=== PATIENT | male | born 1955 | race Caucasian/White ===

== ENCOUNTER 2016-10-11 11:07 | Emergency (ER) | payer OTHER ==
--- NOTE | 2016-10-11 13:36 | DIAGNOSTIC IMAGING REPORT ---
PROCEDURE: CT ABD/PELVIS WITH CONTRAST INDICATION: Left lower quadrant pain. History of right kidney stones in right inguinal hernia. TECHNIQUE: 145 ml of Isovue 300 were injected intravenously and axial images were obtained of the entire abdomen and pelvis with sagittal and coronal reformations. COMPARISON: Comparison is made to CT abdomen and pelvis on 06/26/2013. FINDINGS: ABDOMEN: Gallbladder, liver, spleen, pancreas, and kidneys are normal. Moderate to marked calcified atheromatous changes aorta. Bowel pattern is normal. Appendix is not clearly identified, but no evidence of inflammatory process. Mild to moderate degenerative changes of the heart, lumbar and lower lumbar spine. PELVIS: There is a 2 cm focal area of edematous lipomatous change adjacent to the upper sigmoid colon. There are moderate to marked calcified atheromatous changes of the iliac vessels. The rest of the pelvic structures are normal with dystrophic calcifications in the central prostate. No evidence of diverticulitis. No evidence of free fluid. IMPRESSION: 1. There is a 2 cm lipomatous area in the upper sigmoid colon compatible with epiploic appendagitis (torsion of epiploic appendage). 2. Otherwise negative CT abdomen and pelvis. 3. Findings discussed with Dr. Can. All CT scans at this facility use dose modulation, iterative reconstruction, and/or weight-based dosing when appropriate to reduce radiation dose to as low as reasonably achievable.
--- NOTE | 2016-10-11 14:29 | ED CLINICAL REPORT ---
Clinical Report - Physicians/Mid Levels [facility] [address] [place] [address] 10/11/2016 11:08 Patient: JASMINA CHARLES Time Seen: 11:53. Arrived- By private vehicle. Historian- patient. HISTORY OF PRESENT ILLNESS Chief Complaint: ABDOMINAL PAIN. At its maximum, severity described as moderate. When seen in the E.D., severity described as moderate. Modifying factors- worsened by movement. Relieved by rest. It is described as "pain" and sharp. No radiation. It is described as located in the left lower quadrant. This started about 2 weeks ago and is still present. It was gradual in onset and has been waxing/waning. No nausea, vomiting or diarrhea. Similar symptoms previously: None. Recent medical care: The patient was seen recently in a clinic (5 days ago). Seen for similar symptoms and other problems. REVIEW OF SYSTEMS No constipation, black stools, hematemesis, difficulty with urination or pain with urination. No urinary frequency, bloody stools, fever, headache or sore throat. No chest pain, difficulty breathing, cough or skin rash. The patient has had joint pain, and back pain. All systems otherwise negative, except as recorded above. PAST HISTORY Primary physician: Dr Roman ([facility], [place], operated by [facility]) PROBLEMS: COPD / asthma Chronic pain syndrome. Chronic pain due to injury. Tendonitis. Chest Wall Pain. Fractured ribs in past. Pleurisy. UTI - Urinary Tract Infection. Sinus bradycardia. Hypokalemia. Nephrolithiasis. Anxiety Reaction. Hyperventilation. Dizziness. Near Syncope. Hypertension. SURGERIES: Hernia Repair. Sinus Surgery. Tonsillectomy. Medications: Gabapentin Oral 200 mg BID. Lantus Subcutaneous 10 units, every AM, pt is supposed to increase it as needed. Albuterol Sulfate HFA Inhalation, daily as needed. Paxil Oral 10 mg, daily. Allergies: Percocet. Xanax. SOCIAL HISTORY Former smoker, end date 2015. History of drug use: marijuana. No alcohol use. Is a local resident. ADDITIONAL NOTES The nursing notes have been reviewed. PHYSICAL EXAM Vital Signs: 10/11/2016 11:23 BP: 162/81. HR: 76. RR: 18. O2 saturation: 97%. Temp: 98.1 F. Pain level now: 8/10. Appearance: Alert. Oriented X3. Patient in mild distress. Eyes: Eyes normal inspection. No scleral icterus or pale conjunctivae. ENT: Pharynx normal. No pharyngeal erythema or tonsillar exudate. The mucous membranes are not dry. Neck: Normal inspection. Neck supple. CVS: Normal heart rate and rhythm. Heart sounds normal. Pulses normal. Respiratory: No respiratory distress. Breath sounds normal. Chest nontender. No rales, rhonchi or wheezes. Abdomen: Soft. Moderate tenderness in the left lower quadrant. No tenderness in the upper abdomen or epigastric area. No rebound tenderness, distention, mass present or guarding. Back: Normal inspection. Skin: Skin warm and dry. Normal skin color. No rash. Normal skin turgor. Extremities: Extremities exhibit normal ROM. No calf tenderness. No lower extremity edema. Neuro: Oriented X 3. No motor deficit. LABS, X-RAYS, AND EKG Abdominal CT: IMPRESSION: 1. There is a 2 cm lipomatous area in the upper sigmoid colon compatible with epiploic appendagitis (torsion of epiploic appendage). 2. Otherwise negative CT abdomen and pelvis. Study type: abdomen and pelvis. Abdominal CT performed with IV contrast. The study was independently viewed by me, interpreted by the radiologist and discussed with the radiologist. Laboratory Tests: UA-Culture if indicated: (LYNN: 10/11/2016 11:38) ( MsgRcvd 10/11/2016 12:08) Final results Test Result Flag Units (Reference) URINE COLOR YELLOW URINE APPEARANCE CLEAR URINE GLUCOSE 3+ (NEGATIVE) URINE BILIRUBIN NEGATIVE (NEGATIVE) URINE KETONE NEGATIVE (NEGATIVE) URINE SPECIFIC GRAVITY 1.020 (1.010-1.030) URINE PH 5.0 (5.0-8.0) URINE PROTEIN NEGATIVE (NEGATIVE) URINE UROBILINOGEN 0.2 EU/dL (0.2-1.0) URINE NITRITE NEGATIVE (NEGATIVE) URINE BLOOD NEGATIVE (NEGATIVE) URINE LEUK ESTERASE NEGATIVE (NEGATIVE) URINE RBC NONE SEEN rbc/hpf (0-1) URINE WBC RARE wbc/hpf (0-1) URINE EPITHELIAL CELLS 0-1 EPI/hpf (0-5) URINE BACTERIA NONE SEEN (NONE SEEN) URINE COMMENT CULT NOT INDICATED URINE CULTURES ARE SET-UP BASED ON THE FOLLOWING CRITERIA:POSITIVE NITRITEPOSITIVE LEUKOCYTE ESTERASEGREATER THAN 10 WHITE BLOOD CELLSMODERATE (2+) OR GREATER BACTERIA CBC w Diff: (LYNN: 10/11/2016 11:38) ( [facility] 10/11/2016 12:13) Final results Test Result Flag Units (Reference) WHITE BLOOD COUNT 10.1 K/uL (4.5-11.5) RED BLOOD COUNT 5.35 M/uL (4.50-5.90) HEMOGLOBIN 15.5 gm/dL (13.5-17.5) HEMATOCRIT 46.5 % (41.0-53.0) MEAN CELL VOLUME 87 fL (80-100) MEAN CORPUSCULAR HGB 29 pg (26-34) MEAN CORPUSCULAR HGB CONC 33 g/dL (31-37) RED CELL DISTRIBUTION WIDTH 13.8 % (11.6-14.8) PLATELET COUNT 203 K/uL (150-400) NEUTROPHIL % 70.1 % (50-75) LYMPH % 23.1 L % (25-40) MONO % 5.3 % (3-14) EOSINOPHIL % 1.3 % (0-4) BASOPHIL % 0.2 % (0-2) PT with INR: (LYNN: 10/11/2016 11:25) ( [facility] 10/11/2016 12:23) Final results Test Result Flag Units (Reference) INR 0.9 (0.8-1.2) Low Intensity Therapy: INR 1.5-2.0 PT range 18.5-23.1Mod.Intensity Therapy: INR 2.0-3.0 PT range 23.1-31.5High Intensity Therapy: INR 2.5-3.5 PT range 27.4-35.5High Intensity Therapy 2: INR 3.0-4.0 PT range 31.5-39.3 Urine Drug Screen: (LYNN: 10/11/2016 11:38) ( [facility] 10/11/2016 12:17) Final results Test Result Flag Units (Reference) AMPHETAMINE/METHAMPHETAMINE NEGATIVE (NEGATIVE) BARBITURATE NEGATIVE (NEGATIVE) BENZODIAZEPINE NEGATIVE (NEGATIVE) CANNABINOID POSITIVE H (NEGATIVE) COCAINE NEGATIVE (NEGATIVE) ECSTASY NEGATIVE (NEGATIVE) METHADONE NEGATIVE (NEGATIVE) OPIATE NEGATIVE (NEGATIVE) The urine drug screen is a qualitative screening test fordrug overdose and abuse. All screen results should beconsidered as presumptive.Drugs screened for are as follows:BenzodiazepinesCocaineAmphetamines/MetamphetaminesTHC (Tetrahydrocannabinol)OpiatesBarbituratesEcstasyMethadonePositive results are unconfirmed. For confirmation, notifythe lab for the specimen to be sent to the reference lab.All confirmations must be performed by a differentmethodology.The ingestion of natural herbal and plant productscontaining Ephedra/Ephedra metabolites can produce in urineone or more substances capable of cross reacting withamphetamine/methamphetamine immunoassays. These testsprovide a preliminary result only. A more specificalternative chemical method must be used to obtain aconfirmed analytical result. BNP: (LYNN: 10/11/2016 11:25) ( [facility] [place]11[place] 12:47) Final results Test Result Flag Units (Reference) B-TYPE NATRIURETIC PEPTIDE 18.4 pg/ml (5-100) CHEM 13 PANEL: (LYNN: 10/11/2016 11:25) ( [facility] [place]/11/2016 12:37) Final results Test Result Flag Units (Reference) GLUCOSE 353 H mg/dL (70-110) BUN 11 mg/dL (7-18) CREATININE 1.0 mg/dL (0.6-1.3) Estimated GFR >60 mL/min Estimated GFR- >60 mL/min Note: Persistent reduction over 3 months in eGFR<60 mL/min/1.73 m2 defines CKD. Patients with eGFR values>=60 mL/min/1.73 m2 may also have CKD if evidence ofpersistent proteinuria. Additional information may be foundat www.[email or web address].org. SODIUM 136 mmol/L (136-145) POTASSIUM 4.1 mmol/L (3.5-5.1) CHLORIDE 99 mmol/L (98-107) CARBON DIOXIDE 26 mmol/L (21-32) CALCIUM 8.8 mg/dL (8.5-10.1) TOTAL PROTEIN 7.7 g/dL (6.4-8.2) ALBUMIN 3.9 g/dL (3.3-5.0) BILIRUBIN, TOTAL 0.5 mg/dL (0.0-1.0) ALKALINE PHOSPHATASE 146 H U/L (46-116) AST (SGOT) 11 L U/L (15-37) ALT (SGPT) 27 U/L (12-78) MAGNESIUM 2.0 mg/dL (1.8-2.4) LIPASE 962 H U/L (73-393) AMYLASE 96 U/L (25-115) CPK 70 U/L (24-260) TROPONIN I <0.05 ng/mL (0.00-1.5) TROPONIN REFERENCE RANGE:<0.1 NEGATIVE0.1-1.5 INDETERMINANT>1.5 POSITIVE . Pulse Oximetry: 10/11/2016 11:23 O2 saturation: 97%. (FIO2 - room air). Interpretation: normal. PROGRESS AND PROCEDURES Course of Care: Normal Saline 1 liter IVPB given. Zofran 4 mg IVP given. Dilaudid 0.5 mg IVP given. Lipase is just less than 2.5x upper limitis of normal, but amylase is normal. No upper abdominal tenderness. Pt informed that he may have early pancreatitis, but unlikely. I have offered admission, but he declines now - states he will return or report to his pcp tomorrow for any new or worsening symptoms or concerns. He states he has taken vicodin in the past without problems. Patient/family counseled. Old ED records reviewed. Disposition: Discharged. Condition: stable and improved. CLINICAL IMPRESSION Acute left lower quadrant abdominal pain of unknown cause. Chronic, poorly controlled type 2 diabetes with hyperglycemia. No coma. Essential hypertension. Abnormal liver function test: alkaline phosphatase. Torsion of Epiploic Appendage. Elevated lipase with normal amylase - unclear etiology. INSTRUCTIONS Rest. Drink plenty of fluids. Avoid alcohol and NSAIDS. NSAIDS include aspirin, ibuprofen (Advil) and naproxen (Aleve). Avoid fatty, fried/greasy, lactose-containing (such as milk, cheese and ice cream), salty and spicy foods. No alcohol until released. Avoid alcohol and NSAIDS. Examples of NSAIDS include aspirin, ibuprofen (Advil) and naproxen (Aleve). Avoid fatty, fried/greasy, lactose-containing (such as milk, cheese and ice cream), salty and spicy foods. Warnings: Further evaluation is necessary in order to recheck abnormal lab, obtain test results, conduct further tests and assess the possibility of serious illness (you will need your LIPASE rechecked in the near future (at a minimum)). It is very important to follow up with a physician. SEDATIVE MEDICATION: You were given sedative medication during your visit. Do not drive or operate dangerous machinery. CONTROLLED SUBSTANCE WARNINGS. GENERAL WARNINGS: Return or contact your physician immediately if your condition worsens or changes unexpectedly, if not improving as expected, or if other problems arise. Your Current Medications: CONTINUE TAKING THE FOLLOWING MEDICATIONS: Albuterol Sulfate HFA Inhalation : daily, prn. Gabapentin Oral : 200 mg BID. Lantus Subcutaneous : 10 units every AM, pt is supposed to increase it as needed. Paxil Oral : 10 mg daily. Prescription Medications: Hydrocodone/APAP 5mg/325mg: take 1 to 2 orally every 6 hours as needed for pain. Dispense fifteen (15). No refills. Zofran (orally disintegrating tablets) 4 mg: take 1-2 orally every 8 hours as needed for nausea and vomiting. Dispense five (5). No refill. Substitution is permissible. Follow-up: Screening today revealed the patient's blood pressure to be in the hypertensive range. The patient should follow up with a primary care provider for blood pressure management. (Electronically signed by Jay Can DO 10/11/2016 22:59)
--- NOTE | 2016-10-11 14:30 | ED ORDER SUMMARY ---
..... Patient: JASMINA CHARLES OrderSheet [facility] VisitID: [id number] [place] [address] 61y, M Registration Date/Time: 10/11/2016 ORDER SHEET Weight: 95.7 kg (stated) Allergies: Percocet, Xanax GENERAL ORDERS: UA-Culture if indicated Urgent (11:43 10/11/2016 LSullivan R.N. per protocol) (11:44 TBergley) Amylase Urgent (11:57 10/11/2016 PHutchinson DO) (Ack 12:00 TBergley) (12:01 EHassan R.N.) Lipase Urgent (11:10/11/2016 PHutchinson DO) (Ack 12:00 TBergley) (12:01 EHassan R.N.) PT with INR Urgent (11:10/11/2016 PHutchinson DO) (Ack 12:00 TBergley) (12:01 EHassan R.N.) Cardiac Panel Stat (11:57 10/11/2016 PHutchinson DO) (Ack 12:00 TBergley) (12:01 EHassan R.N.) Urine Drug Screen Urgent (11:57 10/11/2016 PHutchinson DO) (Ack 12:00 TBergley) (12:01 EHassan R.N.) BNP Urgent (11:10/11/2016 PHutchinson DO) (Ack 12:00 TBergley) (12:01 EHassan R.N.) NPO (11:10/11/2016 PHutchinson DO) (Ack 12:00 TBergley) (12:01 EHassan R.N.) CT Abd/Pel w Cont (Yes) (N/A) (LLQ - ?hernia, ?Diverticulitis) Urgent (12:29 10/11/2016 PHutchinson DO) (Ack 12:31 TBergley) (13:05 Timo) MEDICATION ORDERS: IV FLUIDS: IV Saline Lock (11:35 10/11/2016 LSullivan R.N. per protocol) (11:36 LSullivan R.N.) IV NS : initial bolus 1000 mL (1000 mL/hr), then 500 mL/hr for X2 (NOW) (11:56 [facility] (12:07 Machellen R.N.) Zofran IV 4 mg (NOW) (11:57 10/11/2016 [facility] (12:07 Machellen R.N.) Dilaudid IV 0.5 mg (may repeat x 2 prn pain) (12:04 10/11/2016 [facility] (12:12 Machellen R.N.) ORDER SHEET NOTES: [Electronically signed by Jay Can DO (22:59 10/11/2016)] [Electronically signed by Ruth Coley R.N. (12:41 10/14/2016)] [Electronically locked/signed by Ruth Coley R.N. (12:41 10/14/2016)]
--- NOTE | 2016-10-11 14:30 | ED ORDER SUMMARY ---
..... Patient: JASMINA CHARLES OrderSheet [facility] VisitID: [id number] [place] [address] 61y, M Registration Date/Time: 10/11/2016 ORDER SHEET Weight: 95.7 kg (stated) Allergies: Percocet, Xanax GENERAL ORDERS: UA-Culture if indicated Urgent (11:43 10/11/2016 LSullivan R.N. per protocol) (11:44 TBergley) Amylase Urgent (11:57 10/11/2016 PHutchinson DO) (Ack 12:00 TBergley) (12:01 EHassan R.N.) Lipase Urgent (11:10/11/2016 PHutchinson DO) (Ack 12:00 TBergley) (12:01 EHassan R.N.) PT with INR Urgent (11:10/11/2016 PHutchinson DO) (Ack 12:00 TBergley) (12:01 EHassan R.N.) Cardiac Panel Stat (11:57 10/11/2016 PHutchinson DO) (Ack 12:00 TBergley) (12:01 EHassan R.N.) Urine Drug Screen Urgent (11:57 10/11/2016 PHutchinson DO) (Ack 12:00 TBergley) (12:01 EHassan R.N.) BNP Urgent (11:10/11/2016 PHutchinson DO) (Ack 12:00 TBergley) (12:01 EHassan R.N.) NPO (11:10/11/2016 PHutchinson DO) (Ack 12:00 TBergley) (12:01 EHassan R.N.) CT Abd/Pel w Cont (Yes) (N/A) (LLQ - ?hernia, ?Diverticulitis) Urgent (12:29 10/11/2016 PHutchinson DO) (Ack 12:31 TBergley) (13:05 Timo) MEDICATION ORDERS: IV FLUIDS: IV Saline Lock (11:35 10/11/2016 LSullivan R.N. per protocol) (11:36 LSullivan R.N.) IV NS : initial bolus 1000 mL (1000 mL/hr), then 500 mL/hr for X2 (NOW) (11:56 10/11/2016 [facility] (12:07 Machellen R.N.) Zofran IV 4 mg (NOW) (11:57 [facility]/11/2016 [facility] (12:07 Machellen R.N.) Dilaudid IV 0.5 mg (may repeat x 2 prn pain) (12:04 10/11/2016 [facility]) (12:12 Machellen R.N.) ORDER SHEET NOTES: [Electronically signed by Jay Can DO (22:59 10/11/2016)] [Electronically signed by Ruth Coley R.N. (12:41 10/14/2016)] [Electronically locked/signed by Ruth Coley R.N. (12:41 10/14/2016)]
--- NOTE | 2016-10-11 14:30 | ED NURSING NOTES ---
Clinical Report - Nurses [facility] [address] [place] [address] 10/11/2016 11:08 Patient: JASMINA CHARLES TRIAGE Triage time 11:23. Acuity: LEVEL 3. Chief Complaint: ABDOMINAL PAIN and (LLQ "dull, hot pain"). Alert. --11:33 Allison Morfin R.N. 11:23 10/11/16. BP: 162/81. HR: 76. RR: 18. O2 saturation: 97%. Temp: 98.1 F. Pain level now: 01/22. --11:33 Allison Morfin R.N. Weight: 95.7 kg stated. Height/Length: 68 inches Per Patient. BMI: 32.1. --11:30 Allison Morfin R.N. Medications Albuterol Sulfate HFA Inhalation, daily as needed. Paxil Oral 10 mg, daily. --11:27 Allison Morfin R.N. Lantus Subcutaneous 10 units, every AM, pt is supposed to increase it as needed. --11:28 Allison Morfin R.N. Gabapentin Oral 200 mg BID. --11:29 Allison Morfin R.N. Allergies Percocet. Xanax. --11:27 Allison Morfin R.N. History Arrived by private vehicle. Historian: patient. Accompanied by spouse. Primary physician (Jesus Roman). This is a recurrent problem. (last Thursday). Treatment PET SITTING: (last took insulin at bedtime last night). PAST MEDICAL HX: Diabetes mellitus (for 2 years, last BS 476). Immunizations: up-to-date. SOCIAL HX: Former smoker, end date 2015. History of drug use: marijuana. No alcohol use. NUTRITIONAL RISK ASSESSMENT: The nutritional risk assessment revealed no deficiencies. FUNCTIONAL ASSESSMENT: Functional assessment: no impairments noted. --11:33 Allison Morfin R.N. PROBLEMS: Chronic pain syndrome. Chronic pain due to injury. Tendonitis. Chest Wall Pain. Fractured ribs in past. Pleurisy. UTI - Urinary Tract Infection. Sinus bradycardia. Hypokalemia. Nephrolithiasis. Anxiety Reaction. Hyperventilation. Dizziness. Near Syncope. Hypertension. --11: Allison Morfin R.N. ADDITIONAL SURGERIES: Hernia Repair. Sinus Surgery. Tonsillectomy. --11:30 Allison Morfin R.N. Interventions ID and allergy band on patient. To room. --11:33 Allison Morfin R.N. PHYSICAL ASSESSMENT 11:10/11/16. GENERAL / NEURO / PSYCH: Alert. Oriented X 4. RESPIRATORY: Respirations not labored. --11:33 Allison Morfin R.N. NURSING PROGRESS NOTES 11:10/11/16. Patient identifiers checked. Call light placed in reach. Bed placed in lowest position. Patient ready for evaluation- chart flagged. --11:33 Allison Morfin R.N. 11:36 10/11/2016 Site #1 started via IV in the right wrist with an 20g angiocath, with aseptic technique and good blood return; one attempt. Blood drawn: rainbow set. Labeled in the presence of the patient and sent to the lab. Saline lock flushed with 10 mL saline. --11:36 Allison Morfin R.N. 11:38 10/11/16. Patient ID band checked for patient name and birthdate: patient confirmed. Clean catch urine collected with return of yellow-colored clear urine; sample sent to lab. Specimen labeled in the presence of the patient. --11:38 Allison Morfin R.N. ( BS 263 at 5:15 am this morning, pt states). --11:39 Allison Morfin R.N. 12:10/11/2016 Started bag #1 999 mL IV Fluids IV NS (Saline); at 999 mL/hr over 1 hour(s) via site #1 via IV pump. Allergies verified and confirmed 5 rights. IV patency established. IV site checked: no pain, redness, or swelling. IV flushed thoroughly pre- and post-medication administration. --12:07 Ruth Coley R.N. 12:07 10/11/2016 Zofran (Ondansetron HCl) IVP 4 mg given over 2 minute(s) via site #1. Allergies verified and confirmed 5 rights. IV patency established. IV site checked: no pain, redness, or swelling. IV flushed thoroughly pre- and post-medication administration. IVP given by RN. --12:07 Ruth Coley R.N. 12:12 10/11/2016 Dilaudid (HYDROmorphone HCl PF) IVP 0.5 mg given over 1 minute(s) via site #1. Allergies verified, confirmed 5 rights and sedative warning given to the patient and patient's family. IV patency established. IV site checked: no pain, redness, or swelling. IV flushed thoroughly pre- and post-medication administration. IVP given by RN. --12:12 Ruth Coley R.N. 12:00 10/11/16. BP: 126/92. HR: 71. RR: 15. O2 saturation: 98%. Temp: 98.3 F (oral). Pain level now: 10/22. --12:13 Ruth Coley R.N. Pulse oximeter and NIBP monitor placed on patient. Reassurance given. Reassessment after fluids administered. He is calm. Overall patient status is the same- he states feels the same. GI / : The patient reports nausea. The patient reports abdominal pain. Denies diarrhea or vomiting. SKIN: Skin color within normal limits. Two patient identifiers checked. Call light placed in reach. Side rails up x 1. --12:13 Ruth Coley R.NKira 13:00 10/11/16. BP: 137/80. HR: 68. RR: 14. O2 saturation: 100%. Pain level now: 11/22. --13:35 Ruth Coley R.N. Pulse oximeter and NIBP monitor placed on patient. Reassurance given. Overall patient status is the same- he states feels better. GI / : The patient reports abdominal pain. Denies nausea or diarrhea. Two patient identifiers checked. Call light placed in reach. --13:35 Ruth Coley R.N. 13:25 10/11/2016 Dilaudid IVP Response: no adverse reaction pain is improving. Symptoms are the same. The patient feels the same. --13:40 Ruth Coley R.N. 13:35 10/11/2016 IV Fluids IV NS via IV site #1 Rate Changed: bag #2 decreased to 500 mL/hr via IV pump. IV patency established. IV site checked: no pain, redness, or swelling. IV flushed thoroughly. --13:35 Ruth Coley R.N. 13:36 10/11/2016 IV Fluids IV NS Discontinued: bag #1 completed. Total amount infused: 1000 mL. IV patency established. IV site checked: no pain, redness, or swelling. IV flushed thoroughly. --13:36 Ruth Coley R.N. 13:40 10/11/2016 Dilaudid (HYDROmorphone HCl PF) IVP 0.5 mg given over 30 second(s) via site #1. Allergies verified, confirmed 5 rights and sedative warning given to the patient. IV patency established. IV site checked: no pain, redness, or swelling. IV flushed thoroughly pre- and post-medication administration. IVP given by RN. --13:40 Ruth Coley R.N. DISPOSITION / DISCHARGE 15:15 10/11/2016 Site #1 removed upon discharge. Catheter intact. Pressure dressing applied. --15:15 Sharmaine Pruett R.N. Departure time: 15:Oct 11 2016. Condition at departure: improved. No learning barriers present. Discharge instructions provided and reviewed with the patient. Reviewed warnings. Reviewed medication(s). Treatments reviewed. Reviewed referrals. Patient verbalized understanding. Written instructions provided in [place]. The patient was discharged home and accompanied by spouse. He left the Emergency Department ambulatory and via private vehicle. Spouse driving. --15:15 Sharmaine Pruett R.N. 15:14 10/11/16. BP: 119/71. HR: 76. RR: 18. O2 saturation: 96%. Temp: 98.6 F. Pain level now 5/10. --15:15 Sharmaine Pruett R.N. Locked/Released at 10/14/2016 12:41 by Ruth Coley R.N.
--- NOTE | 2016-10-14 12:41 | ED MAR SUMMARY ---
..... Medication Administration Record [facility] [address] [place] [address] Patient: JASMINA CHARLES Visit ID: [id number] 61y, M Weight: 95.7 kg Height/Length: 68 in BMI: 32.1 ALLERGIES: Percocet, Xanax Start 12:07 10/11/2016 Ruth Coley R.N., Stop 13:36 10/11/2016 Ruth Coley R.N. Medication Administered: IV NS (SALINE), Dose: IV Fluids over 1 hour(s), Rate: 999 mL/hr, Dispensed: 999 mL bag, Site: #1 right wrist. Medication Ordered: IV NS : initial bolus 1000 mL (1000 mL/hr), then 500 mL/hr for X2 (NOW). Given 12:07 10/11/2016 Ruth Coley R.N. Medication Administered: ZOFRAN [IVP] (ONDANSETRON HCL), Dose: 4 mg IVP over 2 minute(s), Site: #1 right wrist. Medication Ordered: Zofran IV 4 mg (NOW). Given 12:12 10/11/2016 Ruth Coley R.N. Medication Administered: DILAUDID [IVP] (HYDROMORPHONE HCL PF), Dose: 0.5 mg IVP over 1 minute(s), Site: #1 right wrist. Medication Ordered: Dilaudid IV 0.5 mg (may repeat x 2 prn pain). Given 13:40 10/11/2016 Ruth Coley R.N. Medication Administered: DILAUDID [IVP] (HYDROMORPHONE HCL PF), Dose: 0.5 mg IVP over 30 second(s), Site: #1 right wrist. Medication Ordered: Dilaudid IV 0.5 mg (may repeat x 2 prn pain).
--- NOTE | 2016-10-14 12:41 | ED MAR SUMMARY ---
..... Medication Administration Record [facility] [address] [place] [place] [address] Patient: JASMINA CHARLES Visit ID: [id number] 61y, M Weight: 95.7 kg Height/Length: 68 in BMI: 32.1 ALLERGIES: Percocet, Xanax Start 12:07 10/11/2016 Ruth Coley R.N., Stop 13:36 10/11/2016 Ruth Coley R.N. Medication Administered: IV NS (SALINE), Dose: IV Fluids over 1 hour(s), Rate: 999 mL/hr, Dispensed: 999 mL bag, Site: #1 right wrist. Medication Ordered: IV NS : initial bolus 1000 mL (1000 mL/hr), then 500 mL/hr for X2 (NOW). Given 12:07 10/11/2016 Ruth Coley R.N. Medication Administered: ZOFRAN [IVP] (ONDANSETRON HCL), Dose: 4 mg IVP over 2 minute(s), Site: #1 right wrist. Medication Ordered: Zofran IV 4 mg (NOW). Given 12:12 10/11/2016 Ruth Coley R.N. Medication Administered: DILAUDID [IVP] (HYDROMORPHONE HCL PF), Dose: 0.5 mg IVP over 1 minute(s), Site: #1 right wrist. Medication Ordered: Dilaudid IV 0.5 mg (may repeat x 2 prn pain). Given 13:40 10/11/2016 Ruth Coley R.N. Medication Administered: DILAUDID [IVP] (HYDROMORPHONE HCL PF), Dose: 0.5 mg IVP over 30 second(s), Site: #1 right wrist. Medication Ordered: Dilaudid IV 0.5 mg (may repeat x 2 prn pain).
--- NOTE | 2016-10-14 12:41 | ED MED RECONCILIATION SUMMARY ---
Patient: JASMINA CHARLES Medication Reconciliation Report [facility] VisitID: [id number] [address] [place] [address] 61y, M Registration Date/Time: 10/11/2016 Weight: 95.7 kg Height/Length: 68 in. BMI: 32.1 ALLERGIES: Percocet, Xanax The patient's Home Medications are listed below: CONTINUE TAKING THE FOLLOWING MEDICATIONS: Albuterol Sulfate HFA Inhalation, daily Gabapentin Oral 200 mg BID Lantus Subcutaneous 10 units, every AM, pt is supposed to increase it as needed Paxil Oral 10 mg, daily The source(s) of the original Home Medication information: Not obtained. The following Medications were given to the patient in the Emergency Department: IV NS IV Fluids bolus 0, then 999 mL/hr, administered: 10/11/2016 12:07:00 PM Zofran [IVP] IVP 4 mg, administered: 10/11/2016 12:07:00 PM Dilaudid [IVP] IVP 0.5 mg, administered: 10/11/2016 12:12:00 PM Dilaudid [IVP] IVP 0.5 mg, administered: 10/11/2016 1:40:00 PM The following Medications were prescribed to the patient: Hydrocodone/APAP 5mg/325mg: take 1 to 2 orally every 6 hours as needed for pain. Dispense fifteen (15). No refills. -- Jay Can DO Zofran (orally disintegrating tablets) 4 mg: take 1-2 orally every 8 hours as needed for nausea and vomiting. Dispense five (5). No refill. Substitution is permissible. -- Jay Can DO
--- NOTE | 2016-10-14 12:41 | ED DISCHARGE INSTRUCTIONS ---
Patient: JASMINA CHARLES General Instructions [facility] VisitID: [id number] [place] [address] 61y, M Registration Date/Time: 10/11/2016 Acute left lower quadrant abdominal pain of unknown cause. Chronic, poorly controlled type 2 diabetes with hyperglycemia. No coma. Essential hypertension. Abnormal liver function test: alkaline phosphatase. Torsion of Epiploic Appendage. Elevated lipase with normal amylase - unclear etiology. INSTRUCTIONS Rest. Drink plenty of fluids. Avoid alcohol and NSAIDS. NSAIDS include aspirin, ibuprofen (Advil) and naproxen (Aleve). Avoid fatty, fried/greasy, lactose-containing (such as milk, cheese and ice cream), salty and spicy foods. No alcohol until released. Avoid alcohol and NSAIDS. Examples of NSAIDS include aspirin, ibuprofen (Advil) and naproxen (Aleve). Avoid fatty, fried/greasy, lactose-containing (such as milk, cheese and ice cream), salty and spicy foods. Warnings: Further evaluation is necessary in order to recheck abnormal lab, obtain test results, conduct further tests and assess the possibility of serious illness (you will need your LIPASE rechecked in the near future (at a minimum)). It is very important to follow up with a physician. SEDATIVE MEDICATION: You were given sedative medication during your visit. Do not drive or operate dangerous machinery. CONTROLLED SUBSTANCE WARNINGS. GENERAL WARNINGS: Return or contact your physician immediately if your condition worsens or changes unexpectedly, if not improving as expected, or if other problems arise. Your Current Medications: CONTINUE TAKING THE FOLLOWING MEDICATIONS: Albuterol Sulfate HFA Inhalation : daily, prn. Gabapentin Oral : 200 mg BID. Lantus Subcutaneous : 10 units every AM, pt is supposed to increase it as needed. Paxil Oral : 10 mg daily. Prescription Medications: Hydrocodone/APAP 5mg/325mg: take 1 to 2 orally every 6 hours as needed for pain. Dispense fifteen (15). No refills. Zofran (orally disintegrating tablets) 4 mg: take 1-2 orally every 8 hours as needed for nausea and vomiting. Dispense five (5). No refill. Substitution is permissible. Follow-up: Screening today revealed the patient's blood pressure to be in the hypertensive range. The patient should follow up with a primary care provider for blood pressure management. ADDITIONAL INFORMATION Abdominal Pain, Unknown Cause (Female) The exact cause of your abdominal (stomach) pain is not certain. This does not mean that this is something to worry about, or the right tests were not done. Everyone likes to know the exact cause of the problem, but sometimes with abdominal pain, there is no clear-cut cause, and this could be a good thing. The good news is that your symptoms can be treated, and you will feel better. Your condition does not seem serious now; however, sometimes the signs of a serious problem may take more time to appear. For this reason,it is important for you to watch for any new symptoms, problems,or worsening of your condition. Over the next few days, the abdominal pain may come and go, or be continuous. Other common symptoms can include nausea and vomiting. Sometimes it can be difficult to tell if you feel nauseous, you may just feel bad and not associate that feeling with nausea. Constipation, diarrhea, and a fever may go along with the pain. The pain may continue even if treated correctly over the following days. Depending on how things go, sometimes the cause can become clear and may require further or different treatment. Additional evaluations, medications, or tests may be needed. Home care Your health care provider may prescribe medications for pain, symptoms, or an infection. Follow the health care provider's instructions for taking these medications. General care Rest until your next exam. No strenuous activities. Try to find positions that ease discomfort. A small pillow placed on the abdomen may help relieve pain. Something warm on your abdomen (such as a heating pad) may help, but be careful not to burn yourself. Diet Do not force yourself to eat, especially if having cramps, vomiting, or diarrhea. Water is important so you do not get dehydrated. Soup may also be good. Sports drinks may also help, especially if they are not too acidic. Make sure you don't drink sugary drinks as this can make things worse. Take liquids in small amounts. Do not guzzle them. Caffeine sometimes makes the pain and cramping worse. Avoid dairy products if you have vomiting or diarrhea. Don't eat large amounts at a time. Wait a few minutes between bites. Eat a diet low in fiber (called a low-residue diet). Foods allowed include refined breads, white rice, fruit and vegetable juices without pulp, tender meats. These foods will pass more easily through the intestine. Avoid whole-grain foods, whole fruits and vegetables, meats, seeds and nuts, fried or fatty foods, dairy, alcohol and spicy foods until your symptoms go away. Follow-up care Follow up with your health care provider as instructed, or if your pain does not begin to improve in the next 24 hours. When to seek medical care Seek prompt medical care if any of the following occur: Pain gets worse or moves to the right lower abdomen New or worsening vomiting or diarrhea Swelling of the abdomen Unable to pass stool for more than three days Fever of 100.4F (38C) or higher, or as directed by your healthcare provider. Blood in vomit or bowel movements (dark red or black color) Jaundice (yellow color of eyes and skin) Weakness, dizziness Chest, arm, back, neck or jaw pain Unexpected vaginal bleeding or missed period Call 911 Call emergency services if any of the following occur: Trouble breathing Confusion Fainting or loss of consciousness Rapid heart rate Seizure Diabetes with High Blood Sugar You have been treated for high blood sugar (hyperglycemia). This may be becauseof an infection or other illness;eating too many sweets or starches ; not taking enough insulin. Home care High blood sugar may cause symptoms that you can learn to recognize, such as these: If you feel like your blood sugar may be too high, measure it using a blood or urine test. If it is above your usual range, use the "sliding scale"rRegular insulin dose your doctor gave you to correct this. If no "sliding scale" orders were given, contact your doctor for further advice. If your blood sugar is over 300, and you can't reach your doctor, go to the hospital emergency room. Monitor and write down your blood sugars - and insulin dose, if you take insulin - atleast twice a day. Do this before breakfast and before dinner. Do this for the next 3 to 5 days. Follow-up care Follow up with your health care provderduring the next week to review your blood sugar records. You will find out if you need to adjust your dose of insulin or other medicine for blood sugar. When to seek medical care Get prompt medical attention if either of these occur: High blood sugar.Symptoms are frequent urination, feeling dizzy, thirst, headache, nausea or vomiting, abdominal pain, and drowsiness or loss of consciousness. Low blood sugar. Symptoms are fatigue, headache, shakes, excess sweating, hunger, anxiety, reduced vision, drowsiness, weakness, confusion or loss of consciousness, and seizure. High Blood Pressure --Established High Blood Pressure (Hypertension) is a chronic disease. The cause is unknown in most cases. It can usually be controlled with lifestyle changes and/or medicines. Symptoms of high blood pressure may include headache, dizziness, visual changes, chest pain and shortness of breath. Sometimes it causes no symptoms at all. However, even if there are no symptoms, untreated high blood pressure increases the risk of heart attack, also known as acute myocardial infarction, or AMI, and stroke. It is a serious health risk and should not be ignored. A normal blood pressure is 120/80 or less. The first (top) number is the "systolic" pressure. The second (bottom) number is the "diastolic" pressure. Hypertension exists when either the top number is 140 or higher, OR the bottom number is 90 or higher on repeated measurements. Home Care: All patients with high blood pressure should do the following to lower their pressure. If you are on medicines, then these methods may reduce or eliminate your need for medicines in the future. Begin a weight loss program if you are overweight. Reduce your salt intake. Avoid high salt foods (olives, pickles, smoked meats, salted potato chips, etc.). Do not add salt to your food at the table. Use only small amounts of salt when cooking. Begin an exercise program. Discuss with your doctor what type of exercise program would be best for you. It doesn't have to be difficult. Even brisk walking for 20 minutes three times a week is a good form of exercise. Avoid medicines which contain heart stimulants. This includes many cold and sinus decongestant pills and sprays as well as diet pills. Check the warnings about hypertension on the label. Stimulants such as amphetamine or cocaine could be lethal for someone with hypertension. Never take these. Limit your caffeine intake or switch to caffeine-free products. Stop smoking. If you are a long-time smoker, this can be hard. Enroll in a stop-smoking program to improve your chance of success. Learning how to handle stress better is an important part of any program to lower blood pressure. Learn about relaxation methods such as meditation, yoga or biofeedback. If medicines were prescribed, take them exactly as directed. Missing doses may cause your blood pressure get out of control. Consider buying an automatic blood pressure machine (available at most pharmacies). Use this to monitor your blood pressure at home and report the results to your doctor. Follow Up: Regular visits to your own physician for blood pressure checks and medicine adjustment is an important part of your care. Make a follow-up appointment as directed by our staff. Get Prompt Medical Attention if any of the following occur: Chest pain or shortness of breath Severe headache Throbbing or rushing sound in the ears Nosebleed Sudden severe abdominal pain Extreme drowsiness, confusion or fainting Dizziness or vertigo (dizziness with spinning sensation) Weakness of an arm or leg or one side of the face Difficulty with speech or vision [place] Diet A bland diet is used for patients with an upset stomach. It consists of foods that are mild and easy to digest. It is better to eat small frequent meals rather than three large meals a day. BEVERAGES OK: Fruit juices, non-caffeinated teas and coffee, non-carbonated smith AVOID: Carbonated beverage, caffeinated tea and coffee, all alcoholic beverages BREAD OK: Refined white, wheat or rye bread, keila or soda crackers, [place] toast, plain rolls, bagels AVOID: Whole-grain bread CEREAL OK: Refined cereals: cooked or ready to eat AVOID: Whole grain cereals and granola, or those containing bran, seeds or nuts DESSERTS OK: Peanut butter and all others except those to "avoid" AVOID: Chocolate, cocoa, coconut, popcorn, nuts, seeds, jam, marmalade FRUITS OK: Canned, cooked, frozen or fresh fruits without seeds or tough skin AVOID: Olives, skin and seeds of fruit MEATS OK: All fresh or preserved meat, fish and fowl AVOID: Any that are prepared with those spices to "avoid" CHEESE & EGGS OK: Eggs, cottage cheese, cream cheese, other cheeses AVOID: All cheeses made with those spices to "avoid" POTATOES & PASTA OK: Potato, rice, macaroni, noodles, spaghetti AVOID: None SOUPS OK: All soups without heavy seasoning AVOID: Soups made with those spices to "avoid" VEGETABLES OK: Canned, cooked, fresh or frozen mildly flavored vegetables without seeds, skins or coarse fiber AVOID: Vegetables prepared with those spices to "avoid"; skin and seeds of vegetables and those with coarse fiber SPICES OK: Salt, lemon and [place] juice, vinegar, all extracts, terri, cinnamon, thyme, mace, allspice, paprika AVOID: [place] powder, cloves, pepper, seed spices, garlic, gravy pickles, highly seasoned salad dressings Hydrocodone Bitartrate, Acetaminophen Oral tablet What is this medicine? ACETAMINOPHEN; HYDROCODONE (a set a PILI heidy fen; evelin droe KOE done) is a pain reliever. It is used to treat mild to moderate pain. How should I use this medicine? Take this medicine by mouth. Swallow it with a full glass of water. Follow the directions on the prescription label. If the medicine upsets your stomach, take the medicine with food or milk. Do not take more than you are told to take. Talk to your clerical associate regarding the use of this medicine in children. This medicine is not approved for use in children. What side effects may I notice from receiving this medicine? Side effects that you should report to your doctor or health transitions rn care coordinator as soon as possible: allergic reactions like skin rash, itching or hives, swelling of the face, lips, or tongue breathing problems confusion feeling faint or lightheaded, falls stomach pain yellowing of the eyes or skin Side effects that usually do not require medical attention (report to your doctor or health transitions rn care coordinator if they continue or are bothersome): nausea, vomiting stomach upset What may interact with this medicine? alcohol antihistamines isoniazid medicines for depression, anxiety, or psychotic disturbances medicines for sleep muscle relaxants naltrexone narcotic medicines (opiates) for pain phenobarbital ritonavir tramadol What if I miss a dose? If you miss a dose, take it as soon as you can. If it is almost time for your next dose, take only that dose. Do not take double or extra doses. Where should I keep my medicine? Keep out of the reach of children. This medicine can be abused. Keep your medicine in a safe place to protect it from theft. Do not share this medicine with anyone. Selling or giving away this medicine is dangerous and against the law. Store at room temperature between 15 and 30 degrees C (59 and 86 degrees F). Protect from light. Keep container tightly closed. Throw away any unused medicine after the expiration date. Discard unused medicine and used packaging carefully. Pets and children can be harmed if they find used or lost packages. What should I tell my health care provider before I take this medicine? They need to know if you have any of these conditions: brain tumor Crohn's disease, inflammatory bowel disease, or ulcerative colitis drink more than 3 alcohol-containing drinks per day drug abuse or addiction head injury heart or circulation problems kidney disease or problems going to the bathroom liver disease lung disease, asthma, or breathing problems an unusual or allergic reaction to acetaminophen, hydrocodone, other opioid analgesics, other medicines, foods, dyes, or preservatives or trying to get breast-feeding What should I watch for while using this medicine? Tell your doctor or health transitions rn care coordinator if your pain does not go away, if it gets worse, or if you have new or a different type of pain. You may develop tolerance to the medicine. Tolerance means that you will need a higher dose of the medicine for pain relief. Tolerance is normal and is expected if you take the medicine for a long time. Do not suddenly stop taking your medicine because you may develop a severe reaction. Your body becomes used to the medicine. This does NOT mean you are addicted. Addiction is a behavior related to getting and using a drug for a non-medical reason. If you have pain, you have a medical reason to take pain medicine. Your doctor will tell you how much medicine to take. If your doctor wants you to stop the medicine, the dose will be slowly lowered over time to avoid any side effects. You may get drowsy or dizzy when you first start taking the medicine or change doses. Do not drive, use machinery, or do anything that may be dangerous until you know how the medicine affects you. Stand or sit up slowly. There are different types of narcotic medicines (opiates) for pain. If you take more than one type at the same time, you may have more side effects. Give your health care provider a list of all medicines you use. Your doctor will tell you how much medicine to take. Do not take more medicine than directed. Call emergency for help if you have problems breathing. The medicine will cause constipation. Try to have a bowel movement at least every 2 to 3 days. If you do not have a bowel movement for 3 days, call your doctor or health transitions rn care coordinator. Too much acetaminophen can be very dangerous. Do not take Tylenol (acetaminophen) or medicines that contain acetaminophen with this medicine. Many non-prescription medicines contain acetaminophen. Always read the labels carefully. Ondansetron Oral disintegrating tablet What is this medicine? ONDANSETRON (on FRANCISCO se zaida) is used to treat nausea and vomiting caused by chemotherapy. It is also used to prevent or treat nausea and vomiting after surgery. How should I use this medicine? These tablets are made to dissolve in the mouth. Do not try to push the tablet through the foil backing. With dry hands, peel away the foil backing and gently remove the tablet. Place the tablet in the mouth and allow it to dissolve, then swallow. While you may take these tablets with water, it is not necessary to do so. Talk to your clerical associate regarding the use of this medicine in children. Special care may be needed. What side effects may I notice from receiving this medicine? Side effects that you should report to your doctor or health transitions rn care coordinator as soon as possible: allergic reactions like skin rash, itching or hives, swelling of the face, lips, or tongue breathing problems dizziness fast or irregular heartbeat feeling faint or lightheaded, falls fever and chills swelling of the hands and feet tightness in the chest Side effects that usually do not require medical attention (report to your doctor or health transitions rn care coordinator if they continue or are bothersome): constipation or diarrhea headache What may interact with this medicine? Do not take this medicine with any of the following medications: -apomorphine -cisapride -dofetilide -dronedarone -pimozide -thioridazine -ziprasidone This medicine may also interact with the following medications: -carbamazepine -phenytoin -rifampicin -tramadol -other medicines that prolong the QT interval (cause an abnormal heart rhythm) What if I miss a dose? If you miss a dose, take it as soon as you can. If it is almost time for your next dose, take only that dose. Do not take double or extra doses. Where should I keep my medicine? Keep out of the reach of children. Store between 2 and 30 degrees C (36 and 86 degrees F). Throw away any unused medicine after the expiration date. What should I tell my health care provider before I take this medicine? They need to know if you have any of these conditions: heart disease history of irregular heartbeat liver disease low levels of magnesium or potassium in the blood an unusual or allergic reaction to ondansetron, granisetron, other medicines, foods, dyes, or preservatives or trying to get breast-feeding What should I watch for while using this medicine? Check with your doctor or health transitions rn care coordinator as soon as you can if you have any sign of an allergic reaction. You have been given the following additional information: Abdominal Pain, Unknown Cause, (Female) Diabetic Hyperglycemia Hypertension, Established Diet, [place] (Adult) Hydrocodone Bitartrate, Acetaminophen Oral tablet Ondansetron Oral disintegrating tablet Rest. (Electronically signed by Jay Can DO 10/11/2016 22:59)
--- NOTE | 2016-10-14 12:41 | ED MED RECONCILIATION SUMMARY ---
Patient: JASMINA CHARLES Medication Reconciliation Report [facility] VisitID: [id number] [address] [place] [address] 61y, M Registration Date/Time: 10/11/2016 Weight: 95.7 kg Height/Length: 68 in. BMI: 32.1 ALLERGIES: Percocet, Xanax The patient's Home Medications are listed below: CONTINUE TAKING THE FOLLOWING MEDICATIONS: Albuterol Sulfate HFA Inhalation, daily Gabapentin Oral 200 mg BID Lantus Subcutaneous 10 units, every AM, pt is supposed to increase it as needed Paxil Oral 10 mg, daily The source(s) of the original Home Medication information: Not obtained. The following Medications were given to the patient in the Emergency Department: IV NS IV Fluids bolus 0, then 999 mL/hr, administered: 10/11/2016 12:07:00 PM Zofran [IVP] IVP 4 mg, administered: 10/11/2016 12:07:00 PM Dilaudid [IVP] IVP 0.5 mg, administered: 10/11/2016 12:12:00 PM Dilaudid [IVP] IVP 0.5 mg, administered: 10/11/2016 1:40:00 PM The following Medications were prescribed to the patient: Hydrocodone/APAP 5mg/325mg: take 1 to 2 orally every 6 hours as needed for pain. Dispense fifteen (15). No refills. -- Jay Can DO Zofran (orally disintegrating tablets) 4 mg: take 1-2 orally every 8 hours as needed for nausea and vomiting. Dispense five (5). No refill. Substitution is permissible. -- Jay Can DO
== END 2016-10-11 15:10 | disposition home or self-care (01) ==
LOC: ED SRH 11:07
DX: E11.65 Type 2 diabetes mellitus with hyperglycemia (principal); N44.04 Torsion of appendix epididymis; I10 Essential (primary) hypertension; R10.32 Left lower quadrant pain; R94.5 Abnormal results of liver function studies; R74.8 Abnormal levels of other serum enzymes; J45.909 Unspecified asthma, uncomplicated; Z87.891 Personal history of nicotine dependence; Z79.4 Long term (current) use of insulin; Z79.899 Other long term (current) drug therapy
CPT/HCPCS: 90004; 90100; 90616; 91320; 92235; 92530; 92610; 92720; 92760; 92761; 92762; 92763; 92764; 92765; 92766; 92767; 94060; 95059

== ENCOUNTER 2016-10-23 10:56 | Emergency (ER) | payer OTHER ==
--- NOTE | 2016-10-23 13:34 | DIAGNOSTIC IMAGING REPORT ---
PROCEDURE: CT ABD/PELVIS WITH CONTRAST CLINICAL INDICATION: GI BLEED TECHNIQUE: 125 ml of Isovue 300 were injected intravenously and axial images were obtained of the entire abdomen and pelvis with sagittal and coronal reformations. COMPARISON: CT abdomen/pelvis 10/11/2016. FINDINGS: ABDOMEN: Lung bases are clear. Heart size is normal. Liver, gallbladder, pancreas, spleen, adrenal glands and the right kidney are normal. Left extrarenal pelvis. Moderate atherosclerosis of the aorta. Mild descending colon diverticulosis. Fluid in the cecum. PELVIS: Appendix not identified but no evidence of acute appendicitis. Mild sigmoid diverticulosis. Enlarged prostate (5.2 cm) with dystrophic calcifications. Normal bladder. No pelvic mass, inflammatory changes or free fluid. Moderate degenerative changes of the thoracolumbar spine. IMPRESSION: 1. Fluid in the cecum suggestive of enterocolitis 2. Mild descending and sigmoid colon diverticulosis 3. Results discussed with Dr. Ramírez All CT scans at this facility use dose modulation, iterative reconstruction, and/or weight-based dosing when appropriate to reduce radiation dose to as low as reasonably achievable.
--- NOTE | 2016-10-23 13:38 | ED ORDER SUMMARY ---
..... Patient: JASMINA CHARLES OrderSheet [facility] VisitID: [id number] [address] [place] [address] 61y, M Registration Date/Time: 10/23/2016 ORDER SHEET Weight: 95.7 kg (stated) Allergies: Percocet, Xanax GENERAL ORDERS: CBC w Diff Urgent (11:10/23/2016 KKnebel R.N. per protocol) (11:14 KKnebel R.N.) CMP Urgent (11:10/23/2016 KKnebel R.N. per protocol) (11:14 KKnebel R.N.) UA-Culture if indicated Urgent (11:10/23/2016 KKnebel R.N. per protocol) (Ack 11:14 OSnell) (12:12 KKnebel R.N.) PT with INR Urgent (11:10/23/2016 KKnebel R.N. per protocol) (11:14 KKnebel R.N.) Amylase Urgent (11:10/23/2016 KKnebel R.N. per protocol) (11:14 KKnebel R.N.) Lipase Urgent (11:10/23/2016 KKnebel R.N. per protocol) (11:14 KKnebel R.N.) NPO (11:10/23/2016 KKnebel R.N. per protocol) (11:14 KKnebel R.N.) CT Abd/Pel w Cont (Yes) (1.0) Urgent (12:18 10/23/2016 Ronnie ZAPATA) (Ack 12:36 OSnell) (13:27 KKnebel R.N.) MEDICATION ORDERS: IV FLUIDS: IV Saline Lock (11:10/23/2016 KKnebel R.N. per protocol) (11:14 KKnebel R.N.) IV NS : initial bolus none -, then 250 mL/hr for 2h (NOW); Routine (12:19 10/23/2016 Ronnie ZAPATA) (12:37 KKnebel R.N.) ORDER SHEET NOTES: [Electronically signed by Connor Ramírez MD (20:08 10/23/2016)] [Electronically signed by Clarice Sanchez R.N. (23:14 10/23/2016)] [Electronically locked/signed by Clarice Sanchez R.N. (23:14 10/23/2016)]
--- NOTE | 2016-10-23 13:38 | ED ORDER SUMMARY ---
..... Patient: JASMINA CHARLES OrderSheet [facility] VisitID: [id number] [address] [place] [address] 61y, M Registration Date/Time: 10/23/2016 ORDER SHEET Weight: 95.7 kg (stated) Allergies: Percocet, Xanax GENERAL ORDERS: CBC w Diff Urgent (11:10/23/2016 KKnebel R.N. per protocol) (11:14 KKnebel R.N.) CMP Urgent (11:10/23/2016 KKnebel R.N. per protocol) (11:14 KKnebel R.N.) UA-Culture if indicated Urgent (11:10/23/2016 KKnebel R.N. per protocol) (Ack 11:14 OSnell) (12:12 KKnebel R.N.) PT with INR Urgent (11:10/23/2016 KKnebel R.N. per protocol) (11:14 KKnebel R.N.) Amylase Urgent (11:10/23/2016 KKnebel R.N. per protocol) (11:14 KKnebel R.N.) Lipase Urgent (11:10/23/2016 KKnebel R.N. per protocol) (11:14 KKnebel R.N.) NPO (11:10/23/2016 KKnebel R.N. per protocol) (11:14 KKnebel R.N.) CT Abd/Pel w Cont (Yes) (1.0) Urgent (12:18 10/23/2016 Ronnie ZAPATA) (Ack 12:36 OSnell) (13:27 KKnebel R.N.) MEDICATION ORDERS: IV FLUIDS: IV Saline Lock (11:10/23/2016 KKnebel R.N. per protocol) (11:14 KKnebel R.N.) IV NS : initial bolus none -, then 250 mL/hr for 2h (NOW); Routine (12:19 10/23/2016 Ronnie ZAPATA) (12:37 KKnebel R.N.) ORDER SHEET NOTES: [Electronically signed by Connor Ramírez MD (20:08 10/23/2016)] [Electronically signed by Clarice Sanchez R.N. (23:14 10/23/2016)] [Electronically locked/signed by Clarice Sanchez R.N. (23:14 10/23/2016)]
--- NOTE | 2016-10-23 13:38 | ED NURSING NOTES ---
Clinical Report - Nurses Formerly [facility] [address] [place] [address] 10/23/2016 10:57 Patient: JASMINA CHARLES TRIAGE Triage time 11:Oct 23 2016. Chief Complaint: RECTAL BLEED. Alert. No acute distress. SEPSIS SCREEN: Sepsis Screen. Negative (no infection suspected/documented). FABI COMA SCORE: [place] Coma Scale: 15- eyes open spontaneously (4); best verbal response- oriented x 4 (5); best motor response- obeys commands (6). --11:10 Clarice Sanchez R.N. 11:05 10/23/16. BP: 152/93. HR: 77. RR: 16. O2 saturation: 98%. Temp: 98.2 F. Pain level now: 11/22. --11:10 Clarice Sanchez R.N. Weight: 95.7 kg stated. Height/Length: 68 inches Per Patient. BMI: 32.1. --11:08 Clarice Sanchez R.N. Medications Albuterol Sulfate HFA Inhalation, daily as needed. Gabapentin Oral 200 mg BID. Lantus Subcutaneous 10 units, every AM, pt is supposed to increase it as needed. Paxil Oral 10 mg, daily. --11:07 Clarice Sanchez R.N. MetFORMIN HCl Oral (Tablet 500 mg) 1 tablet, 2x a day. --11:16 Clarice Sanchez R.N. Atorvastatin Calcium Oral (Tablet 40 mg) 1 tablet, at bedtime. --11:17 Clarice Sanchez R.N. Allergies Percocet. Xanax. --11:07 Clarice Sanchez R.N. History Arrived by private vehicle. Historian: patient. Accompanied by family and spouse. This is a new problem. Symptoms still present (3 days ago). ( low back pain, abdominal pain). PAST MEDICAL HX: Immunizations: up-to-date. SOCIAL HX: Never smoker. History of heavy drug use: marijuana. Recently used drugs just prior to arrival. No alcohol use. No infectious disease exposure. SELF HARM ASSESSMENT: A self harm assessment was performed. The patient answered "no" to the question "Do you have thoughts of harming or killing yourself?". FALL RISK ASSESSMENT: Fall risk assessment completed. No fall risk identified. NUTRITIONAL RISK ASSESSMENT: The nutritional risk assessment revealed no deficiencies. FUNCTIONAL ASSESSMENT: Functional assessment: no impairments noted. LEARNING NEEDS ASSESSMENT: The learning needs assessment revealed no barriers. ABUSE ASSESSMENT: Abuse assessment: The patient was asked "Do you feel safe in your home?". SKIN INTEGRITY ASSESSMENT: Skin integrity risk assessment completed. No skin integrity risk identified. --11:10 Clarice Sanchez R.N. PROBLEMS: Abdominal Pain. Abnormal Liver Function Test. Diabetes Mellitus. Chronic pain syndrome. Chronic pain due to injury. Tendonitis. Chest Wall Pain. Fractured ribs in past. Pleurisy. UTI - Urinary Tract Infection. Sinus bradycardia. Hypokalemia. Nephrolithiasis. Anxiety Reaction. Hyperventilation. Dizziness. Near Syncope. Hypertension. Immunizations. --11:07 Clarice Sanchez R.N. ADDITIONAL SURGERIES: Hernia Repair. Sinus Surgery. Tonsillectomy. --11:07 Clarice Sanchez R.N. Interventions ID and allergy band on patient. To room. --11:10 Clarice Sanchez R.N. PHYSICAL ASSESSMENT GENERAL / NEURO / PSYCH: Alert. Oriented X 4. Appears in pain. HEENT: No facial asymmetry noted. Mucous membranes are pink. RESPIRATORY: Respirations not labored. Chest nontender. Breath sounds within normal limits. CVS: Capillary refill less than 2 seconds. Pulses within normal limits. GI / : Abdomen soft. Abdominal tenderness in the left lower quadrant. Diminished bowel sounds in all quadrants. SKIN: Skin is warm and dry. --11:12 Clarice Sanchez R.N. NURSING PROGRESS NOTES Pulse oximeter and NIBP monitor placed on patient; monitor alarms on. Patient gowned. Head of bed elevated. Patient identifiers checked. Call light placed in reach. Side rails up x 1. Bed placed in lowest position. Brakes of bed on. Patient ready for evaluation- chart flagged. --11:12 Clarice Sanchez R.N. 11:14 10/23/2016 Site #1 started via IV in the left wrist with an 20g angiocath, with aseptic technique and good blood return; one attempt. Blood drawn: rainbow set. Labeled in the presence of the patient and sent to the lab. Saline lock flushed with 10 mL saline. --11:14 Clarice Sanchez R.N. 11:42 10/23/2016 Site #1 removed. Bandage applied. --11:42 Clarice Sanchez R.N. 11:42 10/23/2016 Site #1 relocated to the right antecubital space with an 20g angiocath, with aseptic technique and good blood return; one attempt. Saline lock flushed with 10 mL saline. --11:42 Clarice Sanchez R.N. ( pt c/o IV site pain. relocated IV site to [facility] and removed IV from Left Wrist.). --11:43 Clarice Sanchez R.N. 12:37 10/23/2016 Started bag #1 1000 mL IV Fluids IV NS (Saline); at 250 mL/hr over 2 hour(s) via site #1 via IV pump. Allergies verified and confirmed 5 rights. IV patency established. IV site checked: no pain, redness, or swelling. IV flushed thoroughly pre- and post-medication administration. --12:37 Clarice Sanchez R.N. The patient is calm and resting quietly. Overall patient status is the same- he states feels the same. Patient returned from [place] by stretcher with tech. (13:Oct 23 2016). --13:05 Clarice Sanchez R.N. 13:04 10/23/16. BP: 134/73. HR: 64. RR: 16. O2 saturation: 97%. Pain level now: 11/22. --13:05 Clarice Sanchez R.N. DISPOSITION / DISCHARGE Departure time: 14:Oct 23 2016. Condition at departure: unchanged. No learning barriers present. Discharge instructions provided and reviewed with the patient. Reviewed medication(s) side effects, precautions, dosing and course information. Prescription(s) given to the patient. Reviewed referral to a primary care physician for followup. Patient verbalized understanding. Written instructions provided in [place]. The patient was discharged home and accompanied by spouse. He left the Emergency Department ambulatory and via private vehicle. Spouse driving. FALL RISK ASSESSMENT: Fall risk assessment completed. No fall risk identified. --14:05 Clarice Sanchez R.N. 14:05 10/23/16. BP: 130/80. HR: 65. RR: 16. O2 saturation: 98%. Pain level now: 11/22. --14:09 Clarice Sanchez R.N. Locked/Released at 10/23/2016 23:14 by Clarice Sanchez R.N.
--- NOTE | 2016-10-23 13:38 | ED NURSING NOTES ---
Clinical Report - Nurses [facility] [address] [place] [address] 10/23/2016 10:57 Patient: JASMINA CHARLES TRIAGE Triage time 11:Oct 23 2016. Chief Complaint: RECTAL BLEED. Alert. No acute distress. SEPSIS SCREEN: Sepsis Screen. Negative (no infection suspected/documented). FABI COMA SCORE: [place] Coma Scale: 15- eyes open spontaneously (4); best verbal response- oriented x 4 (5); best motor response- obeys commands (6). --11:10 Clarice Sanchez R.N. 11:05 10/23/16. BP: 152/93. HR: 77. RR: 16. O2 saturation: 98%. Temp: 98.2 F. Pain level now: 11/22. --11:10 Clarice Sanchez R.N. Weight: 95.7 kg stated. Height/Length: 68 inches Per Patient. BMI: 32.1. --11:08 Clarice Sanchez R.N. Medications Albuterol Sulfate HFA Inhalation, daily as needed. Gabapentin Oral 200 mg BID. Lantus Subcutaneous 10 units, every AM, pt is supposed to increase it as needed. Paxil Oral 10 mg, daily. --11:07 Clarice Sanchez R.N. MetFORMIN HCl Oral (Tablet 500 mg) 1 tablet, 2x a day. --11:16 Clarice Sanchez R.N. Atorvastatin Calcium Oral (Tablet 40 mg) 1 tablet, at bedtime. --11:17 Clariec Sanchez R.N. Allergies Percocet. Xanax. --11:07 Clarice Sanchez R.N. History Arrived by private vehicle. Historian: patient. Accompanied by family and spouse. This is a new problem. Symptoms still present (3 days ago). ( low back pain, abdominal pain). PAST MEDICAL HX: Immunizations: up-to-date. SOCIAL HX: Never smoker. History of heavy drug use: marijuana. Recently used drugs just prior to arrival. No alcohol use. No infectious disease exposure. SELF HARM ASSESSMENT: A self harm assessment was performed. The patient answered "no" to the question "Do you have thoughts of harming or killing yourself?". FALL RISK ASSESSMENT: Fall risk assessment completed. No fall risk identified. NUTRITIONAL RISK ASSESSMENT: The nutritional risk assessment revealed no deficiencies. FUNCTIONAL ASSESSMENT: Functional assessment: no impairments noted. LEARNING NEEDS ASSESSMENT: The learning needs assessment revealed no barriers. ABUSE ASSESSMENT: Abuse assessment: The patient was asked "Do you feel safe in your home?". SKIN INTEGRITY ASSESSMENT: Skin integrity risk assessment completed. No skin integrity risk identified. --11:10 Clarice Sanchez R.N. PROBLEMS: Abdominal Pain. Abnormal Liver Function Test. Diabetes Mellitus. Chronic pain syndrome. Chronic pain due to injury. Tendonitis. Chest Wall Pain. Fractured ribs in past. Pleurisy. UTI - Urinary Tract Infection. Sinus bradycardia. Hypokalemia. Nephrolithiasis. Anxiety Reaction. Hyperventilation. Dizziness. Near Syncope. Hypertension. Immunizations. --11:07 Clarice Sanchez R.N. ADDITIONAL SURGERIES: Hernia Repair. Sinus Surgery. Tonsillectomy. --11:07 Clarice Sanchez R.N. Interventions ID and allergy band on patient. To room. --11:10 Clarice Sanchez R.N. PHYSICAL ASSESSMENT GENERAL / NEURO / PSYCH: Alert. Oriented X 4. Appears in pain. HEENT: No facial asymmetry noted. Mucous membranes are pink. RESPIRATORY: Respirations not labored. Chest nontender. Breath sounds within normal limits. CVS: Capillary refill less than 2 seconds. Pulses within normal limits. GI / : Abdomen soft. Abdominal tenderness in the left lower quadrant. Diminished bowel sounds in all quadrants. SKIN: Skin is warm and dry. --11:12 Clarice Sanchez R.N. NURSING PROGRESS NOTES Pulse oximeter and NIBP monitor placed on patient; monitor alarms on. Patient gowned. Head of bed elevated. Patient identifiers checked. Call light placed in reach. Side rails up x 1. Bed placed in lowest position. Brakes of bed on. Patient ready for evaluation- chart flagged. --11:12 Clarice Sanchez R.N. 11:14 10/23/2016 Site #1 started via IV in the left wrist with an 20g angiocath, with aseptic technique and good blood return; one attempt. Blood drawn: rainbow set. Labeled in the presence of the patient and sent to the lab. Saline lock flushed with 10 mL saline. --11:14 Clarice Sanchez R.N. 11:42 10/23/2016 Site #1 removed. Bandage applied. --11:42 Clarice Sanchez R.N. 11:42 10/23/2016 Site #1 relocated to the right antecubital space with an 20g angiocath, with aseptic technique and good blood return; one attempt. Saline lock flushed with 10 mL saline. --11:42 Clarice Sanchez R.N. ( pt c/o IV site pain. relocated IV site to [facility] and removed IV from Left Wrist.). --11:43 Clarice Sanchez R.N. 12:37 10/23/2016 Started bag #1 1000 mL IV Fluids IV NS (Saline); at 250 mL/hr over 2 hour(s) via site #1 via IV pump. Allergies verified and confirmed 5 rights. IV patency established. IV site checked: no pain, redness, or swelling. IV flushed thoroughly pre- and post-medication administration. --12:37 Clarice Sanchez R.N. The patient is calm and resting quietly. Overall patient status is the same- he states feels the same. Patient returned from [place] by stretcher with tech. (13:Oct 23 2016). --13:05 Clarice Sanchez R.N. 13:04 10/23/16. BP: 134/73. HR: 64. RR: 16. O2 saturation: 97%. Pain level now: 11/22. --13:05 Clarice Sanchez R.N. DISPOSITION / DISCHARGE Departure time: 14:Oct 23 2016. Condition at departure: unchanged. No learning barriers present. Discharge instructions provided and reviewed with the patient. Reviewed medication(s) side effects, precautions, dosing and course information. Prescription(s) given to the patient. Reviewed referral to a primary care physician for followup. Patient verbalized understanding. Written instructions provided in Danish. The patient was discharged home and accompanied by spouse. He left the Emergency Department ambulatory and via private vehicle. Spouse driving. FALL RISK ASSESSMENT: Fall risk assessment completed. No fall risk identified. --14:05 Clarice Sanchez R.N. 14:05 10/23/16. BP: 130/80. HR: 65. RR: 16. O2 saturation: 98%. Pain level now: 11/22. --14:09 Clarice Sanchez R.N. Locked/Released at 10/23/2016 23:14 by Clarice Sanchez R.N.
--- NOTE | 2016-10-23 13:38 | ED CLINICAL REPORT ---
Clinical Report - Physicians/Mid Levels [facility] [address] [place] [address] 10/23/2016 10:57 Patient: JASMINA CHARLES Time Seen: 12:00 Oct 23 2016. Arrived- By private vehicle. Historian- patient. CPT: ER phys charges level 4 plus (#[id number]). Anoscopy diagnostic (#[id number]). HISTORY OF PRESENT ILLNESS Chief Complaint: RECTAL BLEEDING. 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 ((3 days ago). ( low back pain, abdominal pain).). Is still present. The patient has had rectal bleeding. (Had bright red blood after 2 episodes of diarrhea last week. Has had BRP per rectum every morning for the last 3 days. No rectal pain. Has some LLQ pain. Has seen PCP who wants a repeat CT of abdomen.). Similar symptoms previously: None. Recent medical care: The patient was seen recently at this facility in the emergency department (12 days ago). Seen for similar symptoms. Evaluation/treatment: abdominal CT scan and labs. Diagnosis: (elevated lipase and epiploic appendage torsion.). REVIEW OF SYSTEMS No dizziness, fainting episodes, weakness, fever or sore throat. No epistaxis, cough, difficulty breathing, chest pain or hematuria. No skin rash, enlarged lymph nodes or chills. No complaint of rectal foreign body. Left sided back pain for 2 weeks. All systems otherwise negative, except as recorded above. PAST HISTORY Abdominal Pain. Abnormal Liver Function Test. Diabetes Mellitus. Chronic pain syndrome. Chronic pain due to injury. Tendonitis. Chest Wall Pain. Fractured ribs in past. Pleurisy. UTI - Urinary Tract Infection. Sinus bradycardia. Hypokalemia. Nephrolithiasis. Anxiety Reaction. Hyperventilation. Dizziness. Near Syncope. Hypertension. Immunizations. ADDITIONAL SURGERIES: Hernia Repair. Sinus Surgery. Tonsillectomy. Medications: Atorvastatin Calcium Oral (Tablet 40 mg) 1 tablet, at bedtime. MetFORMIN HCl Oral (Tablet 500 mg) 1 tablet, 2x a day. Albuterol Sulfate HFA Inhalation, daily as needed. Gabapentin Oral 200 mg BID. Lantus Subcutaneous 10 units, every AM, pt is supposed to increase it as needed. Paxil Oral 10 mg, daily. Allergies: Percocet. Xanax. SOCIAL HISTORY Never smoker. History of occasional drug use: marijuana. No alcohol use. ADDITIONAL NOTES The nursing notes have been reviewed. PHYSICAL EXAM Vital Signs: 10/23/2016 11:05 BP: 152/93. HR: 77. RR: 16. O2 saturation: 98%. Temp: 98.2 F. Pain level now: 10. Appearance: Alert. No acute distress. Anxious. Eyes: Pupils equal, round and reactive to light. Eyes normal inspection. No pale conjunctivae. ENT: Pharynx normal. Neck: Normal inspection. Neck supple. CVS: Normal heart rate and rhythm. Heart sounds normal. Pulses normal. Respiratory: No respiratory distress. Breath sounds normal. Abdomen: Soft and nontender. Bowel sounds normal. No mass. Back: Normal inspection. Rectal: Strongly heme-positive stool; blood streaks present in the stool; hemoccult manager quality systems check passed. (POC test reference range: negative). Rectal exam normal and nontender. Skin: Skin warm. Normal skin color. No rash. No pallor. Neuro: Oriented X 3. LABS, X-RAYS, AND EKG Abdominal CT: Normal aorta. Normal liver, spleen, pancreas and kidneys. No mass. No free fluid. No bony lesion. No diverticulitis. Mild fluid in the cecum. No bowel wall edema or sign of ischemia. No mass. Abdominal CT performed with IV contrast. The study was independently viewed by me, interpreted by the radiologist and discussed with the radiologist. Laboratory Tests: UA-Culture if indicated: (LYNN: 10/23/2016 12:10) ( MsgRcvd 10/23/2016 12:26) Final results Test Result Flag Units (Reference) URINE COLOR YELLOW URINE APPEARANCE CLEAR URINE GLUCOSE NEGATIVE (NEGATIVE) URINE BILIRUBIN NEGATIVE (NEGATIVE) URINE KETONE NEGATIVE (NEGATIVE) URINE SPECIFIC GRAVITY 1.025 (1.010-1.030) URINE PH 5.5 (5.0-8.0) URINE PROTEIN NEGATIVE (NEGATIVE) URINE UROBILINOGEN 0.2 EU/dL (0.2-1.0) URINE NITRITE NEGATIVE (NEGATIVE) URINE BLOOD NEGATIVE (NEGATIVE) URINE LEUK ESTERASE NEGATIVE (NEGATIVE) URINE RBC 0-1 rbc/hpf (0-1) URINE WBC NONE SEEN wbc/hpf (0-1) URINE EPITHELIAL CELLS RARE EPI/hpf (0-5) URINE BACTERIA NONE SEEN (NONE SEEN) URINE COMMENT CULT NOT INDICATED TRACE MUCOUSURINE CULTURES ARE SET-UP BASED ON THE FOLLOWING CRITERIA:POSITIVE NITRITEPOSITIVE LEUKOCYTE ESTERASEGREATER THAN 10 WHITE BLOOD CELLSMODERATE (2+) OR GREATER BACTERIA CBC w Diff: (LYNN: 10/23/2016 11:25) ( [facility] 10/23/2016 11:35) Final results Test Result Flag Units (Reference) WHITE BLOOD COUNT 10.7 K/uL (4.5-11.5) RED BLOOD COUNT 5.21 M/uL (4.50-5.90) HEMOGLOBIN 15.4 gm/dL (13.5-17.5) HEMATOCRIT 45.1 % (41.0-53.0) MEAN CELL VOLUME 86 fL (80-100) MEAN CORPUSCULAR HGB 30 pg (26-34) MEAN CORPUSCULAR HGB CONC 34 g/dL (31-37) RED CELL DISTRIBUTION WIDTH 13.5 % (11.6-14.8) PLATELET COUNT 247 K/uL (150-400) NEUTROPHIL % 65.1 % (50-75) LYMPH % 27.6 % (25-40) MONO % 5.6 % (3-14) EOSINOPHIL % 1.2 % (0-4) BASOPHIL % 0.5 % (0-2) PT with INR: (LYNN: 10/23/2016 11:25) ( [facility] 10/23/2016 11:37) Final results Test Result Flag Units (Reference) INR 0.9 (0.8-1.2) Low Intensity Therapy: INR 1.5-2.0 PT range 18.5-23.1Mod.Intensity Therapy: INR 2.0-3.0 PT range 23.1-31.5High Intensity Therapy: INR 2.5-3.5 PT range 27.4-35.5High Intensity Therapy 2: INR 3.0-4.0 PT range 31.5-39.3 CMP: (LYNN: 10/23/2016 11:25) ( MsgRcvd 10/23/2016 11:43) Final results Test Result Flag Units (Reference) GLUCOSE 135 H mg/dL (70-110) BUN 11 mg/dL (7-18) CREATININE 1.0 mg/dL (0.6-1.3) Estimated GFR >60 mL/min Estimated GFR- >60 mL/min Note: Persistent reduction over 3 months in eGFR<60 mL/min/1.73 m2 defines CKD. Patients with eGFR values>=60 mL/min/1.73 m2 may also have CKD if evidence ofpersistent proteinuria. Additional information may be foundat [email or web address]. SODIUM 142 mmol/L (136-145) POTASSIUM 4.1 mmol/L (3.5-5.1) CHLORIDE 103 mmol/L (98-107) CARBON DIOXIDE 28 mmol/L (21-32) CALCIUM 8.8 mg/dL (8.5-10.1) TOTAL PROTEIN 8.0 g/dL (6.4-8.2) ALBUMIN 4.2 g/dL (3.3-5.0) BILIRUBIN, TOTAL 0.6 mg/dL (0.0-1.0) ALKALINE PHOSPHATASE 142 H U/L (46-116) AST (SGOT) 20 U/L (15-37) ALT (SGPT) 50 U/L (12-78) LIPASE 257 U/L (73-393) AMYLASE 80 U/L (25-115) . PROGRESS AND PROCEDURES Anoscopy: Internal hemorrhoid noted. Gastrointestinal bleeding with source visualized on exam. No mass present on anoscopic exam. No infection noted on anoscopic examination. No foreign body present on. Course of Care: IV NS Pt likely source of bleeding is internal hemorrhoid. Diverticulosis not totally ruled out but degree of bleeding usually a lot more for this syndrome and not time limited to the mornings only. No anemia and VSS. No active bleeding in the ER. Will treat with anusol and have follow up . Return if worse. Patient notes he still has his left flank pain. Evaluation of this shows no tenderness in the left flank or left abdomen to palpation. He has tenderness over the level of the mid back over the T12-L1 area. He says he's had herniated disc here for some time but never radicular pain from it. Based on his CT and his lab and exam most likely cause of this pain as a radicular pain from the prior herniated disc. He will follow up for this. Patient/family counseled. Disposition: Discharged. Condition: stable. CLINICAL IMPRESSION Rectal bleed consisting of bright red blood from internal hemorrhoids. Left sided radicular back pain. INSTRUCTIONS No strenuous activity. Rest. Drink plenty of fluids. Follow a soft diet. Warnings: Further evaluation is necessary. GENERAL WARNINGS: Return or contact your physician immediately if your condition worsens or changes unexpectedly, if not improving as expected, or if other problems arise. Your Current Medications: Prescription Medications: Hydrocodone/APAP 5mg/325mg: take 1 to 2 orally every 6 hours as needed for pain. Dispense fifteen (15). No refills. Anusol-HC 25 mg suppositories: Insert 1 into rectum every 12 hours for 10 days. Dispense twenty (20). No refills. Substitution is permissible. Soma 350 mg: Take 1 orally every 6 hours as needed for muscle spasm. Dispense twenty (20). No refills. Substitution is permissible. Follow-up: Follow up with your doctor Thursday in four days. Call for an appointment. Understanding of the discharge instructions verbalized by patient and family. Discharge instructions reviewed with and understanding was verbalized by spouse. (Electronically signed by Connor Ramírez MD 10/23/2016 20:08)
--- NOTE | 2016-10-23 13:38 | ED CLINICAL REPORT ---
Clinical Report - Physicians/Mid Levels [facility] [address] [place] [address] 10/23/2016 10:57 Patient: JASMINA CHARLES Time Seen: 12:00 Oct 23 2016. Arrived- By private vehicle. Historian- patient. CPT: ER phys charges level 4 plus (#[id number]). Anoscopy diagnostic (#[id number]). HISTORY OF PRESENT ILLNESS Chief Complaint: RECTAL BLEEDING. 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 ((3 days ago). ( low back pain, abdominal pain).). Is still present. The patient has had rectal bleeding. (Had bright red blood after 2 episodes of diarrhea last week. Has had BRP per rectum every morning for the last 3 days. No rectal pain. Has some LLQ pain. Has seen PCP who wants a repeat CT of abdomen.). Similar symptoms previously: None. Recent medical care: The patient was seen recently at this facility in the emergency department (12 days ago). Seen for similar symptoms. Evaluation/treatment: abdominal CT scan and labs. Diagnosis: (elevated lipase and epiploic appendage torsion.). REVIEW OF SYSTEMS No dizziness, fainting episodes, weakness, fever or sore throat. No epistaxis, cough, difficulty breathing, chest pain or hematuria. No skin rash, enlarged lymph nodes or chills. No complaint of rectal foreign body. Left sided back pain for 2 weeks. All systems otherwise negative, except as recorded above. PAST HISTORY Abdominal Pain. Abnormal Liver Function Test. Diabetes Mellitus. Chronic pain syndrome. Chronic pain due to injury. Tendonitis. Chest Wall Pain. Fractured ribs in past. Pleurisy. UTI - Urinary Tract Infection. Sinus bradycardia. Hypokalemia. Nephrolithiasis. Anxiety Reaction. Hyperventilation. Dizziness. Near Syncope. Hypertension. Immunizations. ADDITIONAL SURGERIES: Hernia Repair. Sinus Surgery. Tonsillectomy. Medications: Atorvastatin Calcium Oral (Tablet 40 mg) 1 tablet, at bedtime. MetFORMIN HCl Oral (Tablet 500 mg) 1 tablet, 2x a day. Albuterol Sulfate HFA Inhalation, daily as needed. Gabapentin Oral 200 mg BID. Lantus Subcutaneous 10 units, every AM, pt is supposed to increase it as needed. Paxil Oral 10 mg, daily. Allergies: Percocet. Xanax. SOCIAL HISTORY Never smoker. History of occasional drug use: marijuana. No alcohol use. ADDITIONAL NOTES The nursing notes have been reviewed. PHYSICAL EXAM Vital Signs: 10/23/2016 11:05 BP: 152/93. HR: 77. RR: 16. O2 saturation: 98%. Temp: 98.2 F. Pain level now: 10. Appearance: Alert. No acute distress. Anxious. Eyes: Pupils equal, round and reactive to light. Eyes normal inspection. No pale conjunctivae. ENT: Pharynx normal. Neck: Normal inspection. Neck supple. CVS: Normal heart rate and rhythm. Heart sounds normal. Pulses normal. Respiratory: No respiratory distress. Breath sounds normal. Abdomen: Soft and nontender. Bowel sounds normal. No mass. Back: Normal inspection. 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 (POC test reference range: negative). Rectal exam normal and nontender. Skin: Skin warm. Normal skin color. No rash. No pallor. Neuro: Oriented X 3. LABS, X-RAYS, AND EKG Abdominal CT: Normal aorta. Normal liver, spleen, pancreas and kidneys. No mass. No free fluid. No bony lesion. No diverticulitis. Mild fluid in the cecum. No bowel wall edema or sign of ischemia. No mass. Abdominal CT performed with IV contrast. The study was independently viewed by me, interpreted by the radiologist and discussed with the radiologist. Laboratory Tests: UA-Culture if indicated: (LYNN: 10/23/2016 12:10) ( MsgRcvd 10/23/2016 12:26) Final results Test Result Flag Units (Reference) URINE COLOR YELLOW URINE APPEARANCE CLEAR URINE GLUCOSE NEGATIVE (NEGATIVE) URINE BILIRUBIN NEGATIVE (NEGATIVE) URINE KETONE NEGATIVE (NEGATIVE) URINE SPECIFIC GRAVITY 1.025 (1.010-1.030) URINE PH 5.5 (5.0-8.0) URINE PROTEIN NEGATIVE (NEGATIVE) URINE UROBILINOGEN 0.2 EU/dL (0.2-1.0) URINE NITRITE NEGATIVE (NEGATIVE) URINE BLOOD NEGATIVE (NEGATIVE) URINE LEUK ESTERASE NEGATIVE (NEGATIVE) URINE RBC 0-1 rbc/hpf (0-1) URINE WBC NONE SEEN wbc/hpf (0-1) URINE EPITHELIAL CELLS RARE EPI/hpf (0-5) URINE BACTERIA NONE SEEN (NONE SEEN) URINE COMMENT CULT NOT INDICATED TRACE MUCOUSURINE CULTURES ARE SET-UP BASED ON THE FOLLOWING CRITERIA:POSITIVE NITRITEPOSITIVE LEUKOCYTE ESTERASEGREATER THAN 10 WHITE BLOOD CELLSMODERATE (2+) OR GREATER BACTERIA CBC w Diff: (LYNN: 10/23/2016 11:25) ( [facility] 10/23/2016 11:35) Final results Test Result Flag Units (Reference) WHITE BLOOD COUNT 10.7 K/uL (4.5-11.5) RED BLOOD COUNT 5.21 M/uL (4.50-5.90) HEMOGLOBIN 15.4 gm/dL (13.5-17.5) HEMATOCRIT 45.1 % (41.0-53.0) MEAN CELL VOLUME 86 fL (80-100) MEAN CORPUSCULAR HGB 30 pg (26-34) MEAN CORPUSCULAR HGB CONC 34 g/dL (31-37) RED CELL DISTRIBUTION WIDTH 13.5 % (11.6-14.8) PLATELET COUNT 247 K/uL (150-400) NEUTROPHIL % 65.1 % (50-75) LYMPH % 27.6 % (25-40) MONO % 5.6 % (3-14) EOSINOPHIL % 1.2 % (0-4) BASOPHIL % 0.5 % (0-2) PT with INR: (LYNN: 10/23/2016 11:25) ( [facility] 10/23/2016 11:37) Final results Test Result Flag Units (Reference) INR 0.9 (0.8-1.2) Low Intensity Therapy: INR 1.5-2.0 PT range 18.5-23.1Mod.Intensity Therapy: INR 2.0-3.0 PT range 23.1-31.5High Intensity Therapy: INR 2.5-3.5 PT range 27.4-35.5High Intensity Therapy 2: INR 3.0-4.0 PT range 31.5-39.3 CMP: (LYNN: 10/23/2016 11:25) ( MsgRcvd 10/23/2016 11:43) Final results Test Result Flag Units (Reference) GLUCOSE 135 H mg/dL (70-110) BUN 11 mg/dL (7-18) CREATININE 1.0 mg/dL (0.6-1.3) Estimated GFR >60 mL/min Estimated GFR- >60 mL/min Note: Persistent reduction over 3 months in eGFR<60 mL/min/1.73 m2 defines CKD. Patients with eGFR values>=60 mL/min/1.73 m2 may also have CKD if evidence ofpersistent proteinuria. Additional information may be foundat [email or web address]. SODIUM 142 mmol/L (136-145) POTASSIUM 4.1 mmol/L (3.5-5.1) CHLORIDE 103 mmol/L (98-107) CARBON DIOXIDE 28 mmol/L (21-32) CALCIUM 8.8 mg/dL (8.5-10.1) TOTAL PROTEIN 8.0 g/dL (6.4-8.2) ALBUMIN 4.2 g/dL (3.3-5.0) BILIRUBIN, TOTAL 0.6 mg/dL (0.0-1.0) ALKALINE PHOSPHATASE 142 H U/L (46-116) AST (SGOT) 20 U/L (15-37) ALT (SGPT) 50 U/L (12-78) LIPASE 257 U/L (73-393) AMYLASE 80 U/L (25-115) . PROGRESS AND PROCEDURES Anoscopy: Internal hemorrhoid noted. Gastrointestinal bleeding with source visualized on exam. No mass present on anoscopic exam. No infection noted on anoscopic examination. No foreign body present on. Course of Care: IV NS Pt likely source of bleeding is internal hemorrhoid. Diverticulosis not totally ruled out but degree of bleeding usually a lot more for this syndrome and not time limited to the mornings only. No anemia and VSS. No active bleeding in the ER. Will treat with anusol and have follow up . Return if worse. Patient notes he still has his left flank pain. Evaluation of this shows no tenderness in the left flank or left abdomen to palpation. He has tenderness over the level of the mid back over the T12-L1 area. He says he's had herniated disc here for some time but never radicular pain from it. Based on his CT and his lab and exam most likely cause of this pain as a radicular pain from the prior herniated disc. He will follow up for this. Patient/family counseled. Disposition: Discharged. Condition: stable. CLINICAL IMPRESSION Rectal bleed consisting of bright red blood from internal hemorrhoids. Left sided radicular back pain. INSTRUCTIONS No strenuous activity. Rest. Drink plenty of fluids. Follow a soft diet. Warnings: Further evaluation is necessary. GENERAL WARNINGS: Return or contact your physician immediately if your condition worsens or changes unexpectedly, if not improving as expected, or if other problems arise. Your Current Medications: Prescription Medications: Hydrocodone/APAP 5mg/325mg: take 1 to 2 orally every 6 hours as needed for pain. Dispense fifteen (15). No refills. Anusol-HC 25 mg suppositories: Insert 1 into rectum every 12 hours for 10 days. Dispense twenty (20). No refills. Substitution is permissible. Soma 350 mg: Take 1 orally every 6 hours as needed for muscle spasm. Dispense twenty (20). No refills. Substitution is permissible. Follow-up: Follow up with your doctor Thursday in four days. Call for an appointment. Understanding of the discharge instructions verbalized by patient and family. Discharge instructions reviewed with and understanding was verbalized by spouse. (Electronically signed by Connor Ramírez MD 10/23/2016 20:08)
--- NOTE | 2016-10-23 23:14 | ED DISCHARGE INSTRUCTIONS ---
Patient: JASMINA CHARLES General Instructions [facility] VisitID: [id number] [address] [place] [address] 61y, M Registration Date/Time: 10/23/2016 Rectal bleed consisting of bright red blood from internal hemorrhoids. Left sided radicular back pain. INSTRUCTIONS No strenuous activity. Rest. Drink plenty of fluids. Follow a soft diet. Warnings: Further evaluation is necessary. GENERAL WARNINGS: Return or contact your physician immediately if your condition worsens or changes unexpectedly, if not improving as expected, or if other problems arise. Your Current Medications: Prescription Medications: Hydrocodone/APAP 5mg/325mg: take 1 to 2 orally every 6 hours as needed for pain. Dispense fifteen (15). No refills. Anusol-HC 25 mg suppositories: Insert 1 into rectum every 12 hours for 10 days. Dispense twenty (20). No refills. Substitution is permissible. Soma 350 mg: Take 1 orally every 6 hours as needed for muscle spasm. Dispense twenty (20). No refills. Substitution is permissible. Follow-up: Follow up with your doctor Thursday in four days. Call for an appointment. Understanding of the discharge instructions verbalized by patient and family. Discharge instructions reviewed with and understanding was verbalized by spouse. ADDITIONAL INFORMATION Rectal Bleeding (Stable) Your exam today shows signs of blood in the stool. This is called rectal bleeding, because the blood passes through the rectum. However, the blood may not be coming from the rectum. Blood in the stool may be red or black in color. Red blood in the stool usually comes from the lower gastro-intestinal (GI) tract. This may be due to diverticulosis, polyps, colon inflammation or infection, anal fissure or hemorrhoids. In persons over 50 tumors and cancer of the intestinal tract may first show up as red blood in the stool. Upper GI bleeding causes the stool to turn black. This may occur with bleeding from the esophagus, stomach, duodenum or small intestine. Very small amounts of GI bleeding may not be visible and can only be discovered on a chemical test of the stool. You have not lost a large amount of blood and your condition appears stable at this time. It is very important to have a follow-up exam to determine the exact cause of your bleeding. Home Care: 1) You may resume normal activity as long as you feel well. 2) Avoid aspirin and anti-inflammatory drugs such as ibuprofen (Advil, Motrin) and naproxen (Aleve and Naprosyn). You may use acetaminophen (Tylenol) for pain. [ NOTE : If you have chronic liver disease, talk with your doctor before using acetaminophen.] 3) Avoid alcohol. Follow Up with your doctor or as advised by our medical staff. It is very important that you have further tests done to find the cause of your bleeding. Get Prompt Medical Attention if any of the following occur: -- Large amount of rectal bleeding (more than 1 cup of blood in 24 hours) -- Increasing abdominal pain -- Weakness, dizziness or fainting -- Vomiting blood (red or black color) Hemorrhoids,External A hemorrhoid is a local swelling of the veins around the rectum. These most often occur from repeated forceful straining during bowel movements or heavy lifting. It may also occur in the last few months of . A hemorrhoid feels like a soft lump. It may itch from time to time. When it is inflamed it becomes hard and very painful. Home Care: SITZ BATHS: Sit in a tub filled with about 6 inches of hot water. Allow the water to run in order to keep it hot for a total of 10-15 minutes. Repeat this three times a day until pain is relieved. Keep your stools soft to avoid the need to strain when having a bowel movement. Unless another medicine was prescribed, try the following: IF YOU ARE CONSTIPATED: You may use hldf-onx-ilpfcyq laxatives such as MILK OF MAGNESIA (mild acting) or, DULCOLAX (if stronger action is needed). IF YOU ARE NOT CONSTIPATED but stools are hard, try taking Colace (docusate sodium) which is a stool softener. This will soften stools without producing diarrhea. Drinking extra fluids may also help. The use of creams applied to the hemorrhoid itself, such as ANUSOL or PREPARATION H, will be helpful to reduce pain and itching, and speed healing. Prevention: Avoid straining on the toilet by keeping stools soft. Increasing FIBER in your diet (fruits, cereals, vegetables and grains) will promote healthy bowel movement. If this is not working, you may use METAMUCIL and similar products. These are tlde-hxw-gewuboz fiber supplements. You must drink extra fluids when taking these to avoid constipation. Follow Up with your doctor if you do not begin to respond to the above treatment within the next few days. Get Prompt Medical Attention if any of the following occur: Large amount of rectal bleeding (more than 1 cup of blood in 24 hours) Increasing rectal pain or rectal pain that continues for more than three days of treatment Weakness, dizziness or fainting Vomiting blood (red or black color) You have been given the following additional information: Rectal Bleed, Stable Hemorrhoids No strenuous activity. Rest. (Electronically signed by Connor Ramírez MD 10/23/2016 20:08)
--- NOTE | 2016-10-23 23:15 | ED MED RECONCILIATION SUMMARY ---
Patient: JASMINA CHARLES Medication Reconciliation Report [facility] VisitID: [id number] [address] [place] [address] 61y, M Registration Date/Time: 10/23/2016 Weight: 95.7 kg Height/Length: 68 in. BMI: 32.1 ALLERGIES: Percocet, Xanax The patient's Home Medications are listed below: THE FOLLOWING MEDICATIONS NEED TO BE RECONCILED: Albuterol Sulfate HFA Inhalation, daily Atorvastatin Calcium Oral (40 mg) 1 tablet, at bedtime Gabapentin Oral 200 mg BID Lantus Subcutaneous 10 units, every AM, pt is supposed to increase it as needed MetFORMIN HCl Oral (500 mg) 1 tablet, 2x a day Paxil Oral 10 mg, daily The source(s) of the original Home Medication information: Not obtained. The following Medications were given to the patient in the Emergency Department: IV NS IV Fluids bolus 0, then 250 mL/hr, administered: 10/23/2016 12:37:00 PM The following Medications were prescribed to the patient: Hydrocodone/APAP 5mg/325mg: take 1 to 2 orally every 6 hours as needed for pain. Dispense fifteen (15). No refills. -- Connor Ramírez MD Anusol-HC 25 mg suppositories: Insert 1 into rectum every 12 hours for 10 days. Dispense twenty (20). No refills. Substitution is permissible. -- Connor Ramírez MD Soma 350 mg: Take 1 orally every 6 hours as needed for muscle spasm. Dispense twenty (20). No refills. Substitution is permissible. -- Connor Ramírez MD
--- NOTE | 2016-10-23 23:15 | ED MAR SUMMARY ---
..... Medication Administration Record [facility] [address] [address] Patient: JASMINA CHARLES Visit ID: [id number] 61y, M Weight: 95.7 kg Height/Length: 68 in BMI: 32.1 ALLERGIES: Percocet, Xanax Start 12:37 10/23/2016 Clarice Sanchez, RKiraNKira Medication Administered: IV NS (SALINE), Dose: IV Fluids over 2 hour(s), Rate: 250 mL/hr, Dispensed: 1000 mL bag, Site: #1 right AC. Medication Ordered: IV NS : initial bolus none -, then 250 mL/hr for 2h (NOW); Routine.
--- NOTE | 2016-10-23 23:15 | ED MAR SUMMARY ---
..... Medication Administration Record [facility] [address] [place] [address] Patient: JASMINA CHARLES Visit ID: [id number] 61y, M Weight: 95.7 kg Height/Length: 68 in BMI: 32.1 ALLERGIES: Percocet, Xanax Start 12:37 10/23/2016 Clarice Sanchez, RKiraNKira Medication Administered: IV NS (SALINE), Dose: IV Fluids over 2 hour(s), Rate: 250 mL/hr, Dispensed: 1000 mL bag, Site: #1 right AC. Medication Ordered: IV NS : initial bolus none -, then 250 mL/hr for 2h (NOW); Routine.
--- NOTE | 2016-10-23 23:15 | ED MED RECONCILIATION SUMMARY ---
Patient: JASMINA CHARLES Medication Reconciliation Report [facility] VisitID: [id number] [address] [place] [address] 61y, M Registration Date/Time: 10/23/2016 Weight: 95.7 kg Height/Length: 68 in. BMI: 32.1 ALLERGIES: Percocet, Xanax The patient's Home Medications are listed below: THE FOLLOWING MEDICATIONS NEED TO BE RECONCILED: Albuterol Sulfate HFA Inhalation, daily Atorvastatin Calcium Oral (40 mg) 1 tablet, at bedtime Gabapentin Oral 200 mg BID Lantus Subcutaneous 10 units, every AM, pt is supposed to increase it as needed MetFORMIN HCl Oral (500 mg) 1 tablet, 2x a day Paxil Oral 10 mg, daily The source(s) of the original Home Medication information: Not obtained. The following Medications were given to the patient in the Emergency Department: IV NS IV Fluids bolus 0, then 250 mL/hr, administered: 10/23/2016 12:37:00 PM The following Medications were prescribed to the patient: Hydrocodone/APAP 5mg/325mg: take 1 to 2 orally every 6 hours as needed for pain. Dispense fifteen (15). No refills. -- Connor Ramírez MD Anusol-HC 25 mg suppositories: Insert 1 into rectum every 12 hours for 10 days. Dispense twenty (20). No refills. Substitution is permissible. -- Connor Ramírez MD Soma 350 mg: Take 1 orally every 6 hours as needed for muscle spasm. Dispense twenty (20). No refills. Substitution is permissible. -- Connor Ramírez MD
== END 2016-10-23 14:05 | disposition home or self-care (01) ==
LOC: ED SRH 10:56
DX: K64.8 Other hemorrhoids (principal); M54.16 Radiculopathy, lumbar region; I10 Essential (primary) hypertension; E11.9 Type 2 diabetes mellitus without complications; Z79.4 Long term (current) use of insulin; Z79.84 Long term (current) use of oral hypoglycemic drugs; Z79.899 Other long term (current) drug therapy; Z88.5 Allergy status to narcotic agent; Z88.8 Allergy status to other drugs, medicaments and biological substances
CPT/HCPCS: 90004; 90100; 92235; 92530; 94060; 95059